=== PATIENT | female | born 1945 | race Caucasian/White ===

== ENCOUNTER → 2017-03-21 | Outpatient (CLI) | payer MEDICARE, OTHER ==
[~2017-03-21] MED LIST: ATORVASTATIN CA10 MG PO; AUGMENTIN875 MG PO; DOXYCYCLINE HY100 MG PO; ENDOCET 5-3251 EACH PO; ESCITALOPRAM OX10 MG PO; ESGIC 50-325-41 EAC1 PO; FIBER500 MG PO; FIORICET,ESG1 TABLET PO; HYDROCHLOROTHIA25 MG PO; LEVOTHYROXINE112 MCG PO; LEXAPRO10 MG PO; LO-DOSE ASPIRIN81 M1 PO; LOSARTAN POTASS50 MG PO; MEDROL DOSEPAK4 MG PO; NEXIUM40 MG PO; PERCOCET 5/31 TABLET PO; POTASSIUM CHLO10 ME3 PO; VALACYCLOVIR500 MG PO
== END | disposition home or self-care (01) ==
LOC: CDC 12:54
DX: Z01.810 Encounter for preprocedural cardiovascular examination (principal); M48.06 Spinal stenosis, lumbar region; M71.38 Other bursal cyst, other site; M54.16 Radiculopathy, lumbar region
CPT/HCPCS: 93000

== ENCOUNTER 2017-04-03 13:21 | Day surgery (SDC) | payer OTHER ==
[~2017-04-03] VITALS: Ht 154.9 cm; Wt 95.2 kg
[~2017-04-03 13:21] MED LIST changes: +INDERAL20 MG PO; +IRON325 M1 PO; +KLOR-CON M2020 MEQ PO; +LIPITOR10 MG PO; +NEURONTIN400 MG PO; +PERCOCET 10/1 TABLET PO; +WELLBUTRIN XL150 MG PO; +ZENPEP DR 40,01 EACH PO
[2017-04-03 13:47] VITALS: BP 140/89
[2017-04-03 19:14] VITALS: BP 157/74
[2017-04-03 20:18] VITALS: BP 148/81
[2017-04-03 21:13] VITALS: BP 140/87
== END 2017-04-03 21:21 | disposition home or self-care (01) ==
LOC: SDC 13:21
DX: M47.26 Other spondylosis with radiculopathy, lumbar region (principal); M43.16 Spondylolisthesis, lumbar region; M71.38 Other bursal cyst, other site; M48.06 Spinal stenosis, lumbar region; E78.5 Hyperlipidemia, unspecified; I10 Essential (primary) hypertension; E03.9 Hypothyroidism, unspecified; G47.30 Sleep apnea, unspecified; F41.8 Other specified anxiety disorders; Z79.891 Long term (current) use of opiate analgesic; Z79.899 Other long term (current) drug therapy; Z80.42 Family history of malignant neoplasm of prostate; Z82.61 Family history of arthritis; Z82.3 Family history of stroke; Z87.891 Personal history of nicotine dependence
CPT/HCPCS: 72020; 76000; J0131; J0690; J1100; J2405; J2710; J2930; J3010; J3480; S0020